=== PATIENT | female | born 1995 | race African-American/Black ===

== ENCOUNTER 2018-09-21 17:31 | Emergency (ER) | payer MEDICAID ==
[~2018-09-21] VITALS: Ht 162.6 cm; Wt 68.2 kg
[2018-09-21 17:51] VITALS: BP 152/112; Ht 162.6 cm; Wt 68.2 kg
[2018-09-21] MEDS ORDERED: NIFEDIPINE (17:55)
[2018-09-22] MEDS ORDERED: ACETAMINOPHEN500 M1 PO (01:33)
[2018-09-22] MEDS ORDERED: CYCLOBENZAPRINE10 MG PO (01:33)
[2018-09-22] MEDS ORDERED: IBUPROFEN800 MG PO (01:33)
== END 2018-09-21 18:45 | disposition left against medical advice (07) ==
LOC: EDBD 17:31 → D.ER 17:31
DX: R07.9 Chest pain, unspecified (principal); E87.6 Hypokalemia

== ENCOUNTER 2018-09-21 20:19 | Emergency (ER) | payer MEDICAID ==
[~2018-09-21] VITALS: Ht 162.6 cm; Wt 67.7 kg
[~2018-09-21 20:19] MED LIST: NIFEDIPINE
[2018-09-21 20:40] VITALS: Ht 162.6 cm; Wt 67.7 kg
[2018-09-21 20:58] LABS: BASOPHILS 0.2 % (0-2); EOSINOPHILS 0.5 % (0-7); HEMATOCRIT 38.4 % (36.0-48.0); HEMOGLOBIN 13.1 g/dL (12-16); IMMATURE GRANULOCYTES 0.2 % (0-5); LYMPHOCYTES 11.2 % (15-50); MCH 27.3 pg (26.0-34.0); MCHC 34.1 g/dL (31.0-37.0); MEAN PLATELET VOLUME 10.5 fL (7.4-10.4); MONOCYTES 5.1 % (2-11); NEUTROPHILS 82.8 % (40-80); PLATELET COUNT 226 10x3/uL (130-400); RDW 14.1 % (11.5-14.5); WBC 6.6 10x3/uL (4.8-10.8)
[2018-09-21 21:13] LABS: ALBUMIN 4.3 g/dL (3.4-5.0); ALKALINE PHOSPHATASE 140 U/L (46-116); ALT (SGPT) 24 U/L (10-68); BILIRUBIN - TOTAL 0.52 mg/dL (0.2-1.3); CALC OSMOLALITY 278 mosm/kg (275-300); CALCIUM 9.3 mg/dL (8.5-10.1); CARBON DIOXIDE 28.2 mmol/L (21.0-32.0); CHLORIDE - SERUM 101 mmol/L (98-107); CREATININE - SERUM 0.9 mg/dL (0.6-1.3); GLUCOSE 110 mg/dL (74-106); POTASSIUM - SERUM 3.2 mmol/L (3.5-5.1); PROTEIN - SERUM 8.8 g/dL (6.4-8.2); SODIUM 139 mmol/L (136-145); UREA NITROGEN 13 mg/dL (7-18); eGFR NON AFRICAN AMERICAN 81 mL/min (90-120)
[2018-09-21 21:20] LABS: AMYLASE - SERUM 57 U/L (25-115); LIPASE 55 U/L (73-393)
[2018-09-21 21:22] LABS: TROPONIN-I < 0.017 ng/mL (0.000-0.060)
[2018-09-21 23:59] LABS: APPEARANCE CLEAR (CLEAR); BILIRUBIN NEGATIVE (NEGATIVE); COLOR YELLOW (YELLOW); GLUCOSE NEGATIVE (NEGATIVE); KETONE MODERATE mg/dL (NEGATIVE); NITRITE NEGATIVE (NEGATIVE); PROTEIN 2+ mg/dL (NEGATIVE); UROBILINOGEN NORMAL (NORMAL)
[2018-09-22 00:02] LABS: BACTERIA NONE SEEN /hpf (NONE SEEN); EPITHELIAL CELLS 0-5 /hpf (0-5); RED CELLS - URINE 0-5 /hpf (0-5)
[2018-09-22 00:45] LABS: HCG URINE NEGATIVE (NEGATIVE)
[2018-09-22] MEDS ORDERED: CYCLOBENZAPRINE10 MG PO (01:33)
[2018-09-22] MEDS ORDERED: ACETAMINOPHEN500 M1 PO (01:33)
[2018-09-22] MEDS ORDERED: IBUPROFEN800 MG PO (01:33)
[2018-09-22 01:43] VITALS: BP 129/76
== END 2018-09-22 01:45 | disposition home or self-care (01) ==
LOC: D.ER 20:19
PROVIDERS: Family Medicine
DX: R07.9 Chest pain, unspecified (principal); E87.6 Hypokalemia